=== PATIENT | male | born 1980 | race Two or more races ===

== ENCOUNTER → 2022-12-16 | Outpatient (CLI) | payer BC ==
[2022-12-16 09:45] LABS: Basophils # (auto) 0.1 10 ^3/uL (0-0.2); Basophils % (auto) 1.1 % (0.0-2.0); Eosinophils # (auto) 0.1 10 ^3/uL (0-0.8); Eosinophils % (auto) 1.6 % (0.0-7.0); Hematocrit 47.9 % (41.0-53.0); Hemoglobin 16.6 g/dL (13.5-17.5); Lymphocytes # (auto) 1.8 10 ^3/uL (0.4-5.4); Lymphocytes % (auto) 32.8 % (10.0-50.0); Mean Corpuscular Hemoglobin 30.6 pg (28.0-32.0); Mean Corpuscular Hgb Conc. 34.8 g/dL (32.0-36.0); Monocytes # (auto) 0.5 10 ^3/uL (0-1.3); Monocytes % (auto) 9.3 % (0.0-12.0); Neutrophils # (auto) 3.1 10 ^3/uL (1.6-8.6); Neutrophils % (auto) 55.2 % (37.0-80.0); Nucleated Red Blood Cells % 0.2 %; Red Blood Cells 5.44 10^6/uL (4.5-5.90); Red Cell Distribution Width 12.8 % (11.8-14.3); White Blood Cell 5.6 10^3/uL (4.4-10.8)
[2022-12-16 10:15] LABS: Urine Blood Negative /uL (Negative); Urine Specific Gravity 1.004 (1.001-1.035)
[2022-12-16 10:44] LABS: Anion Gap 9 (5-15); Carbon Dioxide 26 mmol/L (21-32); Chloride 99 mmol/L (98-107); Potassium 4.1 mmol/L (3.5-5.1); Sodium 134 mmol/L (136-145)
[2022-12-16 10:52] LABS: Alanine Aminotransferase 64 U/L (16-61); Alkaline Phosphatase 116 U/L (45-117); Aspartate Aminotransferase 44 U/L (15-37); BUN/Creatinine Ratio 7.3 (10.0-20.0); Bilirubin, Total 1.2 mg/dL (0.2-1.0); Blood Urea Nitrogen 7 mg/dL (7-18); Calcium 9.3 mg/dL (8.5-10.1); Cholesterol 288 mg/dL (< 200); GFR African American 110 mL/min; GFR Non-African American 91 mL/min; Glucose 301 mg/dL (74-106); HDL Cholesterol 46 mg/dL (40-59); Total Protein 8.1 g/dL (6.4-8.2); Triglycerides 442 mg/dL (< 150)
== END | disposition home or self-care (01) ==
LOC: LAB 09:25
PROVIDERS: ATTEND Nurse Practitioner
DX: I10 Essential (primary) hypertension (principal); E78.5 Hyperlipidemia, unspecified; R73.9 Hyperglycemia, unspecified
CPT/HCPCS: 36415; 80053; 80061; 81003; 83036; 84443; 85025

== ENCOUNTER → 2023-03-17 | Outpatient (CLI) | payer BC ==
[2023-03-17 08:17] LABS: Urine Bacteria NONE SEEN /hpf (None Seen); Urine Blood Negative /uL (Negative); Urine Clarity Clear (Clear); Urine Color Colorless (Yellow); Urine Protein, UAD Negative (Negative); Urine Specific Gravity 1.017 (1.001-1.035); Urine Urobilinogen Normal (Negative); Urine WBC <1 /hpf (0 - 3)
[2023-03-17 08:44] LABS: Alanine Aminotransferase 41 U/L (7-40); Albumin 4.4 g/dL (3.2-4.8); Alkaline Phosphatase 111 U/L (46-116); Anion Gap 14 (5-15); Aspartate Aminotransferase 32 U/L (13-40); BUN/Creatinine Ratio 10.5 (10.0-20.0); Bilirubin, Total 0.6 mg/dL (0.2-1.0); Blood Urea Nitrogen 12 mg/dL (9-23); Calcium 9.3 mg/dL (8.5-10.1); Carbon Dioxide 19 mmol/L (20-30); Chloride 102 mmol/L (98-107); Cholesterol 232 mg/dL (< 200); Glucose 91 mg/dL (74-106); HDL Cholesterol 34 mg/dL (40-59); LDL Cholesterol 140 mg/dL (< 100); Potassium 4.5 mmol/L (3.5-5.1); Sodium 135 mmol/L (136-145); Triglycerides 291 mg/dL (< 150)
== END | disposition home or self-care (01) ==
LOC: LAB 07:47
PROVIDERS: ATTEND Nurse Practitioner
DX: E11.9 Type 2 diabetes mellitus without complications (principal); E78.5 Hyperlipidemia, unspecified
CPT/HCPCS: 36415; 80053; 80061; 81001; 82043; 83036

== ENCOUNTER → 2024-06-27 | Outpatient (CLI) | payer BC ==
[2024-06-27 09:08] LABS: Alanine Aminotransferase 33 U/L (7-40); Alkaline Phosphatase 115 U/L (46-116); Anion Gap 9 (5-15); Aspartate Aminotransferase 27 U/L (13-40); BUN/Creatinine Ratio 11.3 (10.0-20.0); Blood Urea Nitrogen 12 mg/dL (9-23); Calcium 10.1 mg/dL (8.7-10.4); Carbon Dioxide 25 mmol/L (20-31); Chloride 107 mmol/L (98-107); Potassium 4.4 mmol/L (3.5-5.1); Sodium 141 mmol/L (136-145)
[2024-06-27 09:09] LABS: Bilirubin, Total 0.5 mg/dL (0.2-1.0); Total Protein 7.8 g/dL (5.7-8.2)
[2024-06-27 09:14] LABS: Albumin 4.9 g/dL (3.2-4.8); Cholesterol 264 mg/dL (< 200); Glucose 141 mg/dL (74-106); LDL Cholesterol 173 mg/dL (< 100); Triglycerides 383 mg/dL (< 150)
[2024-06-27 09:15] LABS: HDL Cholesterol 39 mg/dL (40-59)
== END | disposition home or self-care (01) ==
LOC: LAB 08:02
PROVIDERS: ATTEND Nurse Practitioner
DX: E11.9 Type 2 diabetes mellitus without complications (principal); E78.5 Hyperlipidemia, unspecified
CPT/HCPCS: 36415; 80053; 80061; 83036

== ENCOUNTER → 2024-10-24 | Outpatient (CLI) | payer BC ==
[2024-10-24 07:26] LABS: Urine Bacteria None Seen /hpf (None Seen)
[2024-10-24 07:38] LABS: Urine Blood Negative /uL (Negative); Urine Clarity Clear (Clear); Urine Color Colorless (Yellow); Urine Protein, UAD Negative (Negative); Urine Specific Gravity 1.015 (1.001-1.035); Urine Squamous Epithelial Cell None Seen /hpf (<5); Urine Urobilinogen Normal (Negative); Urine WBC < 1 /HPF (0-3); Urine pH 5.5 (5.0-9.0)
[2024-10-24 07:41] LABS: Basophils # (auto) 0.1 10 ^3/uL (0-0.2); Basophils % (auto) 1.5 % (0.0-2.0); Eosinophils # (auto) 0.1 10 ^3/uL (0-0.8); Eosinophils % (auto) 1.8 % (0.0-7.0); Hematocrit 52.4 % (41.0-53.0); Hemoglobin 18.3 g/dL (13.5-17.5); Lymphocytes # (auto) 1.8 10 ^3/uL (0.4-5.4); Lymphocytes % (auto) 29.9 % (10.0-50.0); Mean Corpuscular Hemoglobin 30.3 pg (28.0-32.0); Mean Corpuscular Hgb Conc. 34.9 g/dL (32.0-36.0); Mean Corpuscular Volume 86.9 fL (80.0-100.0); Monocytes # (auto) 0.7 10 ^3/uL (0-1.3); Neutrophils # (auto) 3.3 10 ^3/uL (1.6-8.6); Neutrophils % (auto) 55.8 % (37.0-80.0); Nucleated Red Blood Cells % 0.1 %; Platelet Count (auto) 231 10^3/uL (140-450); Red Blood Cells 6.02 10^6/uL (4.5-5.90); Red Cell Distribution Width 13.5 % (11.8-14.3)
[2024-10-24 08:01] LABS: Alanine Aminotransferase 36 U/L (7-40); Aspartate Aminotransferase 27 U/L (13-40); Carbon Dioxide 25 mmol/L (20-31); Chloride 102 mmol/L (98-107); Potassium 4.1 mmol/L (3.5-5.1)
[2024-10-24 08:02] LABS: Anion Gap 10 (5-15); BUN/Creatinine Ratio 17.3 (10.0-20.0); Bilirubin, Total 0.6 mg/dL (0.2-1.0); Blood Urea Nitrogen 17 mg/dL (9-23); HDL Cholesterol 43 mg/dL (40-59); Sodium 137 mmol/L (136-145)
[2024-10-24 08:03] LABS: Albumin 5.1 g/dL (3.2-4.8); Alkaline Phosphatase 117 U/L (46-116); Calcium 10.6 mg/dL (8.7-10.4); Cholesterol 278 mg/dL (< 200); Glucose 145 mg/dL (74-106); Total Protein 8.3 g/dL (5.7-8.2); Triglycerides 575 mg/dL (< 150)
== END | disposition home or self-care (01) ==
LOC: LAB 07:17
PROVIDERS: ATTEND Nurse Practitioner
DX: E78.5 Hyperlipidemia, unspecified (principal)
CPT/HCPCS: 36415; 80053; 80061; 81001; 82274; 83036; 84153; 84443; 85025

== ENCOUNTER 2025-04-23 07:51 | Outpatient (CLI) | payer BC ==
[2025-04-23 09:08] LABS: Alanine Aminotransferase 34 U/L (7-40); Albumin 4.8 g/dL (3.2-4.8); Alkaline Phosphatase 97 U/L (46-116); Anion Gap 10 (5-15); BUN/Creatinine Ratio 13.3 (10.0-20.0); Bilirubin, Total 0.7 mg/dL (0.2-1.0); Blood Urea Nitrogen 15 mg/dL (9-23); Calcium 9.8 mg/dL (8.7-10.4); Carbon Dioxide 25 mmol/L (20-31); Chloride 105 mmol/L (98-107); HDL Cholesterol 47 mg/dL (40-59); Potassium 4.5 mmol/L (3.5-5.1); Sodium 140 mmol/L (136-145); Total Protein 8.2 g/dL (5.7-8.2)
[2025-04-23 09:10] LABS: Cholesterol 280 mg/dL (< 200); Glucose 137 mg/dL (74-106); Triglycerides 277 mg/dL (< 150)
== END 2025-04-23 17:00 | disposition home or self-care (01) ==
LOC: LAB 07:51
PROVIDERS: ATTEND Nurse Practitioner
DX: E11.9 Type 2 diabetes mellitus without complications (principal); E78.5 Hyperlipidemia, unspecified
CPT/HCPCS: 36415; 80053; 80061; 83036